=== PATIENT | female | born 1960 | race African-American/Black ===

== ENCOUNTER 2021-10-28 07:17 | Day surgery (SDC) | payer OTHER ==
[2021-10-28] MEDS ORDERED: Ringers Lactate 1,000 ML IV ONE (07:21)
[2021-10-28] MEDS ORDERED: propofoL 200 MG/20 ML VIAL IV ONE (08:13)
[2021-10-28] MEDS ORDERED: LIDOCAINE 1% MPF 5 ML VIAL ONE (08:13)
--- NOTE | 2021-10-28 09:06 | ENDO RPT ---
[address], [address] COLONOSCOPY PROCEDURE REPORT EXAM DATE: 10/28/2021 PATIENT NAME: Bety Dickerson MR #: [id number] BIRTHDATE: 1960 ATTENDING: Heriberto Rucker DR STATUS: outpatient SOFT [employer] HAND ENGRAVER: Shannon Mckeon RN and Cynthia Romero CST INDICATIONS: The patient is a 61 yr old Female here for a colonoscopy due to colon cancer screening PROCEDURE PERFORMED: Colonoscopy with biopsy MEDICATIONS: Per Anesthesia. ESTIMATED BLOOD LOSS: None CONSENT: The patient understands the risks and benefits of the procedure and understands that these risks include, but are not limited to: sedation, allergic reaction, infection, perforation and/or bleeding. Alternative means of evaluation and treatment include, among others: physical exam, x-rays, and/or surgical intervention. The patient elects to proceed with this endoscopic procedure. DESCRIPTION OF PROCEDURE: During intra-op preparation period all mechanical medical equipment was checked for proper function. Hand hygiene and appropriate measures for infection prevention was taken. Procedure, possible complications, alternatives including, but not limited to possibility of bleeding, perforation, tear, infection, sepsis, need for surgery, need for blood transfusion, were explained to the patient. After the risks, benefits and alternatives of the procedure were thoroughly explained, Informed consent was verified, confirmed and timeout was successfully executed by the treatment team. The patient was placed in the left lateral position. A digital rectal exam was performed and revealed internal hemorrhoids and A digital rectal exam was performed and revealed external hemorrhoids. After appropriate level of anesthesia, the scope was passed. The EC-[id number] ([id number] endoscope was introduced through the anus and advanced to the cecum, which was identified by both the appendix and ileocecal valve. The quality of the prep was fair. The instrument was then slowly withdrawn as the colon was fully examined. Scope withdrawal time was 9 minutes. COLON FINDINGS: Mild diverticulosis was noted in the ascending colon. No bleeding was noted from the diverticulosis. A small patch of abnormal mucosa was found in the descending colon. The mucosa was congested and had petechiae. A biopsy of the lesion was performed using cold forceps. Small internal and external hemorrhoids were found. Retroflexed views revealed no abnormalities. The scope was then completely withdrawn from the patient and the procedure terminated. ADVERSE EVENTS: There were no complications. IMPRESSIONS: 1. Mild diverticulosis was noted in the ascending colon 2. Small abnormal mucosa was found in the descending colon; The mucosa was congested and had petechiae; biopsy of the lesion was performed using cold forceps 3. Small internal and external hemorrhoids RECOMMENDATIONS: 1. avoid NSAIDS for 2 weeks 2. await biopsy results 3. fiber rich diet 4. follow-up: office 2 week(s) 5. Monitor for any evidence of rectal bleeding. 6. hemorrhoidal hygiene 7. yearly hemoquant 8. increase dietary water RECALL: for Colonoscopy, pending biopsy results. Heriberto Rucker DR eSigned: Heriberto Rucker DR 10/28/2021 9:05 AM cc: CPT CODES: ICD9 CODES: PATIENT NAME: Bety Dickerson MR#: [id number]
[2021-10-28 09:16] VITALS: TEMP 97.7
[2021-10-28 09:31] VITALS: BP 134/79; O2SAT 98
== END 2021-10-28 09:35 | disposition home or self-care (01) ==
LOC: OR 07:17
PROVIDERS: ATTEND Surgery
PROC: 0DBN8ZX Excision of Sigmoid Colon, Via Natural or Artificial Opening Endoscopic, Diagnostic (ICD-10-PCS; principal; 2021-10-28 08:30)
DX: Z12.11 Encounter for screening for malignant neoplasm of colon (principal); Z20.822 Contact with and (suspected) exposure to COVID-19; K64.8 Other hemorrhoids; K64.4 Residual hemorrhoidal skin tags; K57.30 Diverticulosis of large intestine without perforation or abscess without bleeding
CPT/HCPCS: 88305; 45380; U0003; J2704; J7120